=== PATIENT | female | born 1995 | race African-American/Black ===

== ENCOUNTER → 2017-02-28 13:47 | Observation (INO) ==
[2017-02-28 12:53] LABS: Bilirubin,Urine Negative (Negative); Blood,Urine Negative (Negative); Color,Urine Yellow (Yellow); Glucose,Urine (UA) Normal (Normal); Ketones,Urine Negative (Negative); Leukocyte Esterase,Urine Small (Negative); Nitrite,Urine Negative (Negative); PH,Urine 7.5 pH Units (5.0-8.0); Protein,Urine Negative (Neg-Trace); Specific Gravity,Urine 1.013 (1.010-1.025); Urobilinogen,Urine Normal (Normal)
[2017-02-28 12:58] LABS: Bacteria,Urine Moderate per hpf (None-Few); Hyaline Casts,Urine None Seen per lpf (None-Few); RBC,Urine 0-3 per hpf (0-3); Squamous Epithelial Cell,Urine Many per lpf (None-Few)
[2017-02-28 12:59] LABS: Clarity,Urine Slightly Hazy (Clear)
--- NOTE | 2017-02-28 13:08 | Discharge Summary ---
Date of Encounter: 02/28/17 Time of Encounter: 13:09 - Discharge Diagnosis (1) False labor Priority: Primary Status: Acute Comments: Ms. Daniels, a 21yo female, presents from home with concerns regarding her, "vagina feels weird." 37w 0d OB: Dr. Price She notes pressure in her vagina, back, and abdomen. She feels her abdomen painlessly hardening at random intervals. No vaginal bleeding or gush of fluid. She still feels regular movement. No diarrhea or constipation. She has a hx UTI but denies frequency, burning, or urgency with urination. She denies any complications with this . She did have intercourse, though is unsure specifically when; sometime in the last 48 hours. She had a regular OB appointment 7 days ago - recalls a closed cervix. Regular OB appointment 3 days ago - refalls 1cm dilation, 80% effacement. 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 ----- Per nursing, patient's cervical exam - external os is fingertip. NST reactive with baseline HR 135. No uterine contractions or irritability noted on external TOCO. UA contaminated and without blood, protein, or nitrites. Will culture. Discussed with patient the meaning of the term Braxt[place]-Ribeiro contractions and described the regular intervals of labor contractions. Patient discharged home with instructions to call her primary OB today during business hours to discuss this visit and schedule appropriate follow-up. (2) 37 weeks gestation of Priority: Secondary Status: Acute Comments: as above (3) Primiparous in third trimester Priority: Secondary Status: Acute Comments: as above Data Procedures and tests throughout hospitalization: Laboratory Tests 02/28/17 12:35 Urine Color Yellow Urine Clarity Slightly Hazy Urine pH 7.5 Ur Specific Porter 1.013 Urine Protein Negative Urine Glucose (UA) Normal Urine Ketones Negative Urine Blood Negative Urine Nitrite Negative Urine Bilirubin Negative Urine Urobilinogen Normal Ur Leukocyte Esterase Small H Urine Microscopic RBC 0-3 Urine Microscopic WBC 5-15 H Ur Squamous Epith Cells Many H Urine Bacteria Moderate H Hyaline Casts None Seen Ur Culture Indicated? YES A Labs on day of discharge: Labs from last 24 hours 02/28/17 12:35 Urine Color Yellow Urine Clarity Slightly Hazy Urine pH 7.5 Ur Specific Porter 1.013 Urine Protein Negative Urine Glucose (UA) Normal Urine Ketones Negative Urine Blood Negative Urine Nitrite Negative Urine Bilirubin Negative Urine Urobilinogen Normal Ur Leukocyte Esterase Small H Urine Microscopic RBC 0-3 Urine Microscopic WBC 5-15 H Ur Squamous Epith Cells Many H Urine Bacteria Moderate H Hyaline Casts None Seen Ur Culture Indicated? YES A Date of admission: 02/28/17 12:03 Primary care physician: PCP NO Discharging clinician: Seymour Montoya Anticipated date of discharge: 02/28/17 - Patient Status Disposition: Home, Self-Care Condition: Good Functional capacity at discharge: independent ambulation Overall status at discharge: patient is back to baseline - Discharge Instructions Instructions: Early Labor Signs (DC) Follow Up With: Hamzah Price MD [Non-Partnered Physician] - Additional Instructions: Please call your primary OB, Dr. Price, today during his business hours to discuss this visit and schedule appropriate follow-up. - Diet and Activity Activity: resume usual activities as tolerated Diet: advance to your usual diet Hospital Course STITCHDOWN THREAD LASTER Time Attestation: Total time spent providing and/or coordinating discharge services: Exam - Constitutional General appearance IM: A&O X 3, pleasant - Respiratory Respiratory exam: Present: CTAB - Cardiovascular Cardiovascular exam IM: Present: RRR, +S1, +S2 - GI/Abdominal GI/Abdominal exam IM: soft (gravid), no peritoneal signs - Neurological Exam Neurological exam: alert, oriented X3 - VTE Reasons for not Prescribing Prophylaxis: Treatment not Indicated - Low risk for VTE
== END | disposition home or self-care (01) ==
LOC: 1NENULAB
PROVIDERS: ADMIT Obstetrics & Gynecology; ATTEND Obstetrics & Gynecology

== ENCOUNTER 2021-10-09 11:44 | Inpatient (IN) ==
[2021-10-09 14:05] LABS: Bilirubin,Urine Negative (Negative); Blood,Urine Negative (Negative); Clarity,Urine Clear (Clear); Color,Urine Light-Yellow (Yellow); Glucose,Urine (UA) Normal (Normal); Ketones,Urine Negative (Negative); Leukocyte Esterase,Urine Negative (Negative); Nitrite,Urine Negative (Negative); PH,Urine 7.5 pH Units (5.0-8.0); Protein,Urine Trace mg/dL (Neg-Trace); Specific Gravity,Urine 1.023 (1.010-1.025); Urobilinogen,Urine Normal (Normal)
[2021-10-09 14:30] LABS: Basophils # 0.1 K/mcL (0.0-0.2); Basophils % 0.4 %; Eosinophils # 0.2 K/mcL (0.0-0.6); Eosinophils % 1.2 %; Hematocrit 41.1 % (35.3-44.9); Hemoglobin 13.6 g/dL (11.5-15.4); Immature Granulocytes % 0.4 % (0-4); Lymphocytes # 1.7 K/mcL (0.6-4.6); Lymphocytes % 12.7 %; Mean Corpuscular HGB Conc 33.1 g/dL (31.6-35.5); Mean Corpuscular Hemoglobin 30.9 pg (28.0-33.3); Mean Corpuscular Volume 93.4 fL (83.0-100.0); Monocytes # 0.7 K/mcL (0.0-1.3); Monocytes % 5.4 %; Neutrophils # 10.5 K/mcL (1.6-8.9); Platelet Count 184 K/mcL (140-400); Segmented Neutrophils % 79.9 %; White Blood Count 13.1 K/mcL (4.3-11.1)
[2021-10-09 14:46] LABS: Amphetamine Screen,Urine Negative ng/mL (Cutoff=1000); Barbiturate Screen,Urine Negative ng/mL (Cutoff=200); Benzodiazepines Screen,Urine Positive ng/mL (Cutoff=200); Cannabinoid Screen,Urine Positive ng/mL (Cutoff = 50); Cocaine Screen,Urine Negative ng/mL (Cutoff= 300); Opiate Screen,Urine Negative ng/mL (Cutoff=300); Phencyclidine Screen,Urine Negative ng/mL (Cutoff=25)
[2021-10-09 15:12] LABS: Acetaminophen < 10 mcg/mL (10-20); Alanine Aminotransferase 12 Units/L (7-52); Albumin 4.1 g/dL (3.5-5.7); Albumin/Globulin Ratio 1.6 (1.1-2.2); Alkaline Phosphatase 45 Units/L (34-104); Aspartate Amino Transferase 14 Units/L (13-39); BUN/Creatinine Ratio 10 (6-26); Bilirubin,Direct 0.1 mg/dL (0.0-0.2); Bilirubin,Indirect 0.5 mg/dL (0.0-1.0); Bilirubin,Total 0.6 mg/dL (0.3-1.0); Blood Urea Nitrogen 7 mg/dL (6-20); Calcium 9.1 mg/dL (8.6-10.3); Carbon Dioxide 26 mEq/L (23-29); Chloride 106 mEq/L (98-107); Chol/HDL Ratio 2.1 (0-4.9); Cholesterol 131 mg/dL (< 200); Ethanol < 10 mg/dL (Less than 10); Globulin 2.5 g/dL (2.4-3.5); Glucose 88 mg/dL (70-105); HDL Cholesterol 62 mg/dL (40-59); LDL Cholesterol,Calculated 60 mg/dL (< 100); Osmolality,Calculated 281 (280-300); Potassium 3.8 mEq/L (3.5-5.1); Salicylate < 2.5 mg/dL (15.0-30.0); Sodium 137 mEq/L (136-145); Thyroid Stimulating Hormone 0.431 mcIU/mL (0.340-5.600); Total Protein 6.6 g/dL (6.4-8.9); Triglycerides 44 mg/dL (< 150); eGFR For African Americans > 60 (> 60); eGFR For Non-African Americans > 60 (> 60)
[2021-10-09 15:16] LABS: Estimated Average Glucose 117 mg/dl; Hemoglobin A1C 5.7 %
[2021-10-09 17:51] LABS: Influenza A PCR Negative (Negative); Influenza B PCR Negative (Negative); Resp. Syncytial Virus PCR Negative (Negative)
[2021-10-09 18:09] LABS: SARS-CoV-2 by PCR (In House) Negative (Negative)
[2021-10-09] MEDS ORDERED: Famotidine 20 MG TABLET PO STA (18:38)
[2021-10-09] MEDS ORDERED: Haloperidol Lactate 5 MG/ML VIAL IM PRN (20:10)
[2021-10-09] MEDS ORDERED: *HR* LORazepam 2 MG/ML VIAL IM PRN (20:10)
[2021-10-09] MEDS ORDERED: haloperidoL 5 MG TABLET PO PRN (20:10)
[2021-10-09] MEDS ORDERED: *HR* LORazepam 1 MG TABLET PO PRN (20:10)
[2021-10-09] MEDS: hydrOXYzine pamoate 25 MG CAPSULE PO PRN (21:01)
[2021-10-09] MEDS: traZODone 50 MG TABLET PO PRN (21:01)
[2021-10-09] MEDS: Acetaminophen 325 MG TABLET PO PRN (21:24)
[2021-10-10] MEDS: Acetaminophen 325 MG TABLET PO PRN (11:33)
[2021-10-10] MEDS: hydrOXYzine pamoate 25 MG CAPSULE PO PRN (12:24)
[2021-10-10] MEDS: traZODone 50 MG TABLET PO PRN (22:16)
[2021-10-11 08:56] VITALS: BP 101/67; PULSE 71; TEMP 98.2; O2SAT 98
== END 2021-10-11 14:30 | disposition home or self-care (01) | DRG 756 ==
LOC: EMEROOARM 11:44 → 1ANU 11:44
PROVIDERS: ADMIT Psychiatry & Neurology Psychiatry; ATTEND Psychiatry & Neurology Psychiatry